=== PATIENT | male | born 1975 | race Caucasian/White ===

== ENCOUNTER → 2017-01-06 | Outpatient (CLI) | payer MEDICAID ==
[~2017-01-06] MED LIST: ADVIL200 MG PO; ALBUTEROL2 PUFFS/17 IN; CIPRO 500MG TA500 MG PO; FLEXERIL10 MG PO; KEFLEX 500MG.500 MG PO; MEDROL 4MG. DOSE4 MG PO; NOMEDS XX; PREDNISONE 20MG20 MG PO; STERAPRED DS10 MG PO; TAMIFLU 75MG CA75 MG PO; ULTRAM 50 MG TA50 MG PO
[2017-01-06 18:09] LABS: LYMPH # 1.8 K/mm3 (0.7-4.5); LYMPH % 28.1 % (10-50)
[2017-01-06 19:09] LABS: BUN 9 mg/dL (7-18)
[2017-01-06 20:43] LABS: GFR (ESTIMATED) 83 ML/MIN (>60)
[2017-01-08 08:38] LABS: Folate (Folic Acid) 9.7 ng/mL (>3.0); Vitamin B12 411 pg/mL (211-946)
[2017-01-12 12:37] LABS: 1,25-Dihydroxy, Vitamin D-2 <10 pg/mL (.); 1,25-Dihydroxy, Vitamin D-3 37 pg/mL (.); Total 1,25-Dihydroxy,Vitamin D 40 pg/mL (.)
== END ==
LOC: LAB 17:19
PROVIDERS: Physician Assistant
DX: D51.9 Vitamin B12 deficiency anemia, unspecified (principal); G62.9 Polyneuropathy, unspecified

== ENCOUNTER → 2017-05-26 | Outpatient (CLI) | payer MEDICAID ==
[2017-05-26 16:02] LABS: HEMOGLOBIN 14.7 g/dL (14.1-18.0)
[2017-05-26 16:03] LABS: LYMPH # 1.9 K/mm3 (0.7-4.5)
[2017-05-26 19:10] LABS: BUN 7 mg/dL (7-18)
[2017-05-26 19:21] LABS: GFR (ESTIMATED) 94 ML/MIN (>60)
[2017-05-28 08:40] LABS: Folate (Folic Acid) 10.2 ng/mL (>3.0); Vitamin B12 736 pg/mL (211-946); Vitamin D, 25-Hydroxy 24.4 ng/mL (30.0-100.0)
[2017-05-30 12:36] LABS: Free Testosterone(Direct) 6.3 pg/mL (8.7-25.1)
[2017-06-01 14:38] LABS: Testosterone, Total, LC/MS 181.9 ng/dL (264.0-916.0)
== END ==
LOC: LAB 15:25
PROVIDERS: Physician Assistant
DX: G62.9 Polyneuropathy, unspecified (principal); R53.82 Chronic fatigue, unspecified; E55.9 Vitamin D deficiency, unspecified; R63.5 Abnormal weight gain